=== PATIENT | female | born 1950 | race Caucasian/White ===

== ENCOUNTER 2016-11-07 16:56 | Emergency (ER) | payer BC, MEDICARE ==
[~2016-11-07] VITALS: Ht 167.6 cm; Wt 63.6 kg
[~2016-11-07 16:56] MED LIST: FLEXERIL5 MG PO; MEDROL 4MG DOSPA4 MG PO; ULTRAM 50MG TAB50 MG PO
[2016-11-07 17:08] VITALS: TEMP 97.5
[2016-11-07 17:35] LABS: BASO # 0.1 (0.0-0.2); BASO % 0.6 % (0.0-2.0); EOS # 0.1 (0.0-0.7); EOS % 1.5 % (0-4.0); GRAN # 3.8 (1.4-6.5); GRAN % 48.4 % (42.2-75.2); HEMATOCRIT 39.2 % (37.0-47.0); LYMPH # 3.4 (1.2-3.4); LYMPH % 42.6 % (20.0-51.0); MEAN CELL VOLUME 88 fl (80.0-100.0); MEAN CORPUSCULAR HEMOGLOBIN 29 pg (27.0-31.0); MEAN CORPUSCULAR HGB CONC 33 g/dl (33.0-37.0); MEAN PLATELET VOLUME 10.3 fl (7.4-10.4); MONO # 0.5 (0.1-0.6); MONO % 6.6 % (1.7-9.3); PLATELET COUNT 313 K/mm3 (130-400); RED BLOOD COUNT 4.47 M/mm3 (4.10-5.30); REDCELL DISTRIBUTION WIDTH-CV 13.7 % (11.5-14.5); WHITE BLOOD COUNT 7.9 K/mm3 (4.8-10.8)
[2016-11-07 17:45] LABS: ADJUSTED CALCIUM 9.5 mg/dL (8.4-10.2); ALANINE AMINOTRANSFERASE 28 U/L (9-52); ALBUMIN 4.3 gm/dL (3.5-5.0); ALKALINE PHOSPHATASE 62 U/L (50-136); ANION GAP 12 mmol/L (7-16); BILIRUBIN,TOTAL 0.9 mg/dL (0.0-1.0); BLOOD UREA NITROGEN 16 mg/dL (7-17); CALCIUM 9.7 mg/dL (8.4-10.2); CARBON DIOXIDE 26 mmol/L (22-30); CHLORIDE 99 mmol/L (98-107); CREATININE, serum 0.89 mg/dL (0.52-1.25); GLUCOSE 97 mg/dL (74-106); LIPASE 113 U/L (23-300); POTASSIUM 3.6 mmol/L (3.4-5.0); SODIUM 136 mmol/L (137-145); TOTAL PROTEIN 7.1 gm/dL (6.4-8.2)
[2016-11-07 17:58] LABS: TROPONIN-I < 0.012 ng/mL (0.000-0.034)
[2016-11-07 18:35] VITALS: BP 139/73; PULSE 77
== END 2016-11-07 19:04 | disposition home or self-care (01) ==
LOC: COL.ER 16:56
PROVIDERS: Emergency Medicine
DX: R55 Syncope and collapse (principal)
CPT/HCPCS: J7030

== ENCOUNTER → 2016-12-03 | Outpatient (CLI) | payer BC, MEDICARE | LOC: COL.RAD 08:52 | DX: M18.11 Unilateral primary osteoarthritis of first carpometacarpal joint, right hand (principal) ==

== ENCOUNTER → 2017-04-14 | Outpatient (CLI) | payer BC, MEDICARE | LOC: MC.RAD 08:40 | DX: Z12.31 Encounter for screening mammogram for malignant neoplasm of breast (principal) ==

== ENCOUNTER 2018-04-17 11:00 | Outpatient (RCR) | payer MEDICARE, BC ==
[2018-01-19 11:50] VITALS: BP 131/78; PULSE 82; TEMP 97.8
[2018-01-20 07:55] VITALS: BP 127/68; PULSE 83; TEMP 98.1
[2018-01-20 09:10] VITALS: BP 121/85; PULSE 74; TEMP 98.1
[2018-01-21 11:45] VITALS: BP 139/71; PULSE 79; TEMP 98.1
[2018-01-22 11:15] VITALS: BP 130/83; PULSE 79; TEMP 98.1
[2018-01-23 11:22] VITALS: BP 138/88; PULSE 83; TEMP 97.9
[2018-01-26 11:03] VITALS: BP 139/76; PULSE 76; TEMP 98
[2018-01-27 11:16] VITALS: BP 145/79; PULSE 87; TEMP 98.3
[2018-01-28 11:23] VITALS: BP 140/66; PULSE 79; TEMP 98.4
[2018-01-29 11:22] VITALS: BP 151/70; PULSE 80; TEMP 97.9
[2018-01-30 11:19] VITALS: BP 148/71; PULSE 76; TEMP 98.2
[2018-02-16 11:07] VITALS: BP 152/74; PULSE 83; TEMP 98.3
[2018-02-17 10:57] VITALS: BP 132/74; PULSE 85; TEMP 98.1
[2018-02-18 10:46] VITALS: BP 142/80; PULSE 75; TEMP 98
[2018-02-19 11:02] VITALS: BP 130/775; PULSE 82; TEMP 97.2
[2018-02-20 11:16] VITALS: BP 141/71; PULSE 75; TEMP 97.5
[2018-02-23 10:47] VITALS: BP 133/73; PULSE 86; TEMP 97.4
[2018-02-24 11:08] VITALS: BP 136/74; PULSE 73; TEMP 98.3
[2018-02-25 10:45] VITALS: BP 134/72; PULSE 92; TEMP 98
[2018-02-26 11:05] VITALS: BP 117/70; PULSE 88; TEMP 98
[2018-02-27 11:05] VITALS: BP 119/77; PULSE 75; TEMP 98.6
[2018-03-16 15:13] VITALS: BP 132/67; PULSE 78; TEMP 98.3
[2018-03-17 11:40] VITALS: BP 123/63; PULSE 77; TEMP 97.9
[2018-03-18 08:15] VITALS: BP 122/68; PULSE 73; TEMP 97.9
[2018-03-19 11:02] VITALS: BP 124/81; PULSE 85; TEMP 98.2
[2018-03-20 11:54] VITALS: BP 128/69; PULSE 77; TEMP 98.2
[2018-03-21 08:42] VITALS: BP 11/66; PULSE 78; TEMP 98
[2018-03-23 11:07] VITALS: BP 109/62; PULSE 84; TEMP 97.9
[2018-03-24 11:00] VITALS: BP 132/70; PULSE 73; TEMP 98
[2018-03-25 10:55] VITALS: BP 120/70; PULSE 77; TEMP 97.9
[2018-03-26 09:30] VITALS: BP 151/73; PULSE 92; TEMP 97.9
[2018-04-13 11:09] VITALS: BP 130/89; PULSE 75; TEMP 98
[2018-04-14 10:56] VITALS: BP 127/67; PULSE 71; TEMP 97.8
[2018-04-15 10:52] VITALS: BP 124/61; PULSE 85; TEMP 97.8
[2018-04-16 11:17] VITALS: BP 123/73; PULSE 82; TEMP 97.3
[~2018-04-17] VITALS: Ht 167.6 cm; Wt 64.3 kg
[~2018-04-17 11:00] MED LIST changes: +MOBIC15 MG PO; +RADICAVA IV; +RILUTEK 50MG TA50 MG PO
[2018-04-17 11:25] VITALS: BP 110/63; PULSE 78; TEMP 98.4
== END 2018-04-19 08:43 | disposition home or self-care (01) ==
LOC: EUO 11:00
DX: G12.21 Amyotrophic lateral sclerosis (principal); Z45.2 Encounter for adjustment and management of vascular access device; Z95.828 Presence of other vascular implants and grafts
CPT/HCPCS: C9493; J1644

== ENCOUNTER → 2018-04-28 | Outpatient (CLI) | payer MEDICARE, BC | LOC: MC.RAD 13:10 | DX: Z12.31 Encounter for screening mammogram for malignant neoplasm of breast (principal) ==

== ENCOUNTER 2018-07-17 14:45 | Outpatient (RCR) | payer MEDICARE, BC ==
[2018-04-20 11:29] VITALS: BP 113/67; PULSE 72; TEMP 98.1
[2018-04-21 12:15] VITALS: BP 109/71; PULSE 64; TEMP 98.2
[2018-04-22 11:07] VITALS: BP 122/64; PULSE 78; TEMP 97.8
[2018-04-23 11:07] VITALS: BP 139/73; PULSE 76; TEMP 98
[2018-04-24 11:23] VITALS: BP 119/67; PULSE 74; TEMP 98.6
[2018-05-11 11:57] VITALS: BP 112/68; PULSE 81; TEMP 98.1
[2018-05-12 10:53] VITALS: BP 124/74; PULSE 89; TEMP 97.6
[2018-05-13 11:05] VITALS: BP 126/74; PULSE 74; TEMP 97.8
[2018-05-14 11:05] VITALS: BP 121/76; PULSE 76; TEMP 98.3
[2018-05-15 11:56] VITALS: BP 118/76; PULSE 83; TEMP 98.1
[2018-05-16 08:52] VITALS: BP 98/58; PULSE 73; TEMP 97.6
[2018-05-19 11:58] VITALS: BP 116/72; PULSE 66; TEMP 97.9
[2018-05-20 11:33] VITALS: BP 132/80; PULSE 94; TEMP 98.2
[2018-05-22 14:14] VITALS: BP 122/65; PULSE 78; TEMP 99.2
[2018-06-08 11:06] VITALS: BP 120/65; PULSE 79; TEMP 98.2
[2018-06-09 11:14] VITALS: BP 119/65; PULSE 82; TEMP 97.9
[2018-06-10 11:08] VITALS: BP 128/75; PULSE 77; TEMP 97.8
[2018-06-11 09:30] VITALS: BP 134/74; PULSE 88; TEMP 97.7
[2018-06-12 11:45] VITALS: BP 141/72; PULSE 79; TEMP 97.2
[2018-06-15 11:00] VITALS: BP 113/67; PULSE 75; TEMP 98.2
[2018-06-16 11:18] VITALS: BP 120/81; PULSE 79; TEMP 98.8
[2018-06-17 11:39] VITALS: BP 116/67; PULSE 75; TEMP 98
[2018-06-18 11:40] VITALS: BP 109/57; PULSE 80; TEMP 98.1
[2018-06-19 11:44] VITALS: BP 126/70; PULSE 81; TEMP 98.2
[2018-06-19 11:49] VITALS: BP 126/70; PULSE 81; TEMP 98.2
[2018-07-06 11:03] VITALS: BP 127/72; PULSE 100; TEMP 98.1
[2018-07-07 11:02] VITALS: BP 130/77; PULSE 73; TEMP 98.2
[2018-07-08 11:08] VITALS: BP 123/66; PULSE 70; TEMP 98.9
[2018-07-09 11:09] VITALS: BP 114/63; PULSE 84; TEMP 97.6
[2018-07-10 11:04] VITALS: BP 147/66; PULSE 72; TEMP 98.5
[2018-07-13 14:54] VITALS: BP 126/74; PULSE 81; TEMP 99
[2018-07-14 15:02] VITALS: BP 109/62; PULSE 77; TEMP 98.1
[2018-07-15 16:02] VITALS: BP 115/55; PULSE 77; TEMP 97.6
[2018-07-16 14:58] VITALS: BP 110/69; PULSE 89; TEMP 98
[~2018-07-17] VITALS: Ht 167.6 cm; Wt 66.7 kg
[2018-07-17 14:51] VITALS: BP 119/66; PULSE 75; TEMP 98.2
== END 2018-07-19 | disposition home or self-care (01) ==
LOC: EUO
DX: G12.21 Amyotrophic lateral sclerosis (principal); Z45.2 Encounter for adjustment and management of vascular access device; Z95.828 Presence of other vascular implants and grafts
CPT/HCPCS: C9493; J1644

== ENCOUNTER 2018-09-11 14:45 | Outpatient (RCR) | payer MEDICARE, BC ==
[2018-08-02 08:00] VITALS: BP 102/76; PULSE 52; TEMP 98.4
[2018-08-04 15:08] VITALS: BP 104/52; PULSE 77; TEMP 98.5
[2018-08-05 09:19] VITALS: BP 119/67; PULSE 66; TEMP 97.8
[2018-08-07 14:44] VITALS: BP 129/71; PULSE 94; TEMP 97.9
[2018-08-10 15:10] VITALS: BP 113/60; PULSE 75; TEMP 98.3
[2018-08-11 15:01] VITALS: BP 108/61; PULSE 78; TEMP 98.3
[2018-08-12 14:55] VITALS: BP 112/59; PULSE 82; TEMP 98.2
[2018-08-13 14:45] VITALS: BP 112/57; PULSE 88; TEMP 98.2
[2018-08-14 15:59] VITALS: BP 119/60; PULSE 80; TEMP 98.1
[2018-08-31 15:00] VITALS: BP 131/73; PULSE 78; TEMP 98.9
[2018-09-01 14:47] VITALS: BP 146/77; PULSE 85; TEMP 98.5
[2018-09-02 14:50] VITALS: BP 129/71; PULSE 77; TEMP 98
[2018-09-03 15:00] VITALS: BP 132/73; PULSE 79; TEMP 98.3
[2018-09-04 14:49] VITALS: BP 154/84; PULSE 98; TEMP 98.1
[2018-09-06 08:50] VITALS: BP 115/72; PULSE 82; TEMP 98.3
[2018-09-07 11:59] VITALS: BP 152/67; PULSE 83; TEMP 98.3
[2018-09-07 13:13] VITALS: BP 137/85; PULSE 77
[2018-09-09 14:54] VITALS: BP 127/66; PULSE 82; TEMP 98.2
[2018-09-10 14:51] VITALS: BP 135/75; PULSE 75; TEMP 98.2
[~2018-09-11] VITALS: Ht 167.6 cm; Wt 65.0 kg
[2018-09-11 12:09] VITALS: BP 127/75; PULSE 80; TEMP 98.1
[~2018-09-11 14:45] MED LIST changes: +NAMENDA5 MG PO
== END 2018-09-11 15:14 | disposition home or self-care (01) ==
LOC: EUO 14:45
DX: G12.21 Amyotrophic lateral sclerosis (principal)
CPT/HCPCS: C9493; J1644

== ENCOUNTER 2018-10-26 13:30 | Outpatient (RCR) | payer MEDICARE, BC | END 2018-10-27 | disposition home or self-care (01) | LOC: WSPT | DX: G12.21 Amyotrophic lateral sclerosis (principal) | CPT/HCPCS: G8978-GP; G8979-GP ==

== ENCOUNTER 2018-11-02 13:30 | Outpatient (RCR) | payer MEDICARE, BC | END 2019-01-27 | disposition home or self-care (01) | LOC: WSPT | DX: G12.21 Amyotrophic lateral sclerosis (principal) ==

== ENCOUNTER 2018-12-04 07:30 | Outpatient (RCR) | payer MEDICARE, BC ==
[2018-09-27 08:38] VITALS: BP 120/76; PULSE 73; TEMP 98.1
[2018-09-28 14:55] VITALS: BP 113/71; PULSE 87; TEMP 98.2
[2018-09-29 09:12] VITALS: BP 116/60; PULSE 75; TEMP 98.4
[2018-09-30 14:45] VITALS: BP 100/61; PULSE 69; TEMP 97.9
[2018-10-01 15:00] VITALS: BP 118/72; PULSE 73; TEMP 98
[2018-10-02 10:13] VITALS: BP 111/75; PULSE 80; TEMP 97.5
[2018-10-07 11:45] VITALS: BP 130/78; PULSE 71; TEMP 97.9
[2018-10-08 15:04] VITALS: BP 115/62; PULSE 84; TEMP 98.8
[2018-10-08 15:32] VITALS: BP 106/59; PULSE 71; TEMP 98.3
[2018-10-09 10:15] VITALS: BP 134/59; PULSE 66; TEMP 97
[2018-10-10 07:35] VITALS: BP 128/68; PULSE 74; TEMP 98.2
[2018-10-26 15:10] VITALS: BP 122/86; PULSE 79; TEMP 98.2
[2018-10-27 11:40] VITALS: BP 116/65; PULSE 70; TEMP 97.8
[2018-10-28 15:00] VITALS: BP 111/61; PULSE 78; TEMP 98
[2018-10-29 09:50] VITALS: BP 133/64; PULSE 81; TEMP 98
[2018-10-30 14:48] VITALS: BP 105/64; PULSE 87; TEMP 98.1
[2018-11-02 14:50] VITALS: BP 118/65; PULSE 89; TEMP 98.1
[2018-11-03 14:55] VITALS: BP 122/63; PULSE 89; TEMP 98
[2018-11-04 10:55] VITALS: BP 117/68; PULSE 82; TEMP 97.8
[2018-11-05 15:11] VITALS: BP 105/56; PULSE 87; TEMP 97.2
[2018-11-06 07:55] VITALS: BP 110/57; PULSE 81; TEMP 97.4
[2018-11-23 16:25] VITALS: BP 138/68; PULSE 80; TEMP 98.1
[2018-11-24 14:51] VITALS: BP 120/67; PULSE 77; TEMP 98.5
[2018-11-25 09:44] VITALS: BP 121/75; PULSE 80; TEMP 98.2
[2018-11-26 09:29] VITALS: BP 116/74; PULSE 76
[2018-11-27 08:45] VITALS: BP 137/77; PULSE 92; TEMP 97.3
[2018-11-30 14:45] VITALS: BP 97/50; PULSE 78; TEMP 98.4
[2018-12-01 14:56] VITALS: BP 114/65; PULSE 96; TEMP 98.4
[2018-12-03 14:40] VITALS: BP 107/81; PULSE 81; TEMP 98.4
[~2018-12-04] VITALS: Ht 167.6 cm; Wt 64.0 kg
[2018-12-04 09:42] VITALS: BP 134/71; PULSE 86; TEMP 97.8
== END 2018-12-04 08:40 | disposition home or self-care (01) ==
LOC: EUO 07:30
DX: G12.21 Amyotrophic lateral sclerosis (principal); Z45.2 Encounter for adjustment and management of vascular access device; Z95.828 Presence of other vascular implants and grafts
CPT/HCPCS: J1301; J1644

== ENCOUNTER 2019-03-20 07:30 | Outpatient (RCR) | payer MEDICARE, BC ==
[2018-12-21 14:57] VITALS: BP 124/68; PULSE 78; TEMP 98
[2018-12-22 13:17] VITALS: BP 127/66; PULSE 72; TEMP 98
[2018-12-23 14:40] VITALS: BP 127/67; PULSE 88; TEMP 97.8
[2018-12-24 11:02] VITALS: BP 110/66; PULSE 83; TEMP 97.9
[2018-12-25 07:44] VITALS: BP 122/73; PULSE 70; TEMP 97.6
[2018-12-28 14:45] VITALS: BP 114/62; PULSE 79; TEMP 98.3
[2018-12-29 15:00] VITALS: BP 102/62; PULSE 86; TEMP 97.5
[2018-12-30 14:56] VITALS: BP 114/68; PULSE 82; TEMP 98.6
[2018-12-31 15:24] VITALS: BP 107/69; PULSE 86; TEMP 98.1
[2019-01-01 08:19] VITALS: BP 123/68; PULSE 81; TEMP 97.4
[2019-01-18 14:53] VITALS: BP 113/79; PULSE 83; TEMP 97.6
[2019-01-19 10:53] VITALS: BP 121/65; PULSE 83; TEMP 97.9
[2019-01-20 11:27] VITALS: BP 93/55; PULSE 82; TEMP 97.9
[2019-01-21 14:57] VITALS: BP 131/65; PULSE 101; TEMP 97.8
[2019-01-22 14:53] VITALS: BP 123/69; PULSE 91; TEMP 98
[2019-01-25 14:45] VITALS: BP 106/61; PULSE 71; TEMP 98
[2019-01-26 15:02] VITALS: BP 107/53; PULSE 81; TEMP 98.6
[2019-01-27 15:00] VITALS: BP 115/65; PULSE 70; TEMP 98.4
[2019-01-28 15:37] VITALS: BP 95/57; PULSE 70; TEMP 98.1
[2019-01-29 10:58] VITALS: BP 109/66; PULSE 77; TEMP 97.9
[2019-02-15 15:08] VITALS: BP 106/67; PULSE 79; TEMP 98.4
[2019-02-16 15:13] VITALS: BP 111/65; PULSE 77; TEMP 98.1
[2019-02-17 14:45] VITALS: BP 99/58; PULSE 86; TEMP 98.4
[2019-02-18 14:52] VITALS: BP 92/58; PULSE 71; TEMP 98
[2019-02-19 08:00] VITALS: BP 108/66; PULSE 71; TEMP 98
[2019-02-22 13:25] VITALS: BP 114/61; PULSE 61; TEMP 98
[2019-02-23 13:38] VITALS: BP 102/61; PULSE 89; TEMP 97.8
[2019-02-24 11:32] VITALS: BP 105/66; PULSE 68; TEMP 98.1
[2019-02-25 09:17] VITALS: BP 105/60; PULSE 73; TEMP 97.6
[2019-02-26 15:41] VITALS: BP 105/60; PULSE 77; TEMP 97.5
[2019-03-15 13:07] VITALS: BP 100/55; PULSE 87; TEMP 99.1
[2019-03-16 14:48] VITALS: BP 103/56; PULSE 72; TEMP 98.1
[2019-03-17 11:09] VITALS: BP 113/74; PULSE 74; TEMP 97.3
[2019-03-19 10:03] VITALS: BP 115/66; PULSE 76; TEMP 98
[~2019-03-20] VITALS: Ht 167.6 cm; Wt 65.1 kg
[2019-03-20 07:38] VITALS: BP 121/69; PULSE 81; TEMP 98.1
== END 2019-03-21 | disposition home or self-care (01) ==
LOC: EUO
DX: G12.21 Amyotrophic lateral sclerosis (principal); Z79.899 Other long term (current) drug therapy
CPT/HCPCS: J1301; J1644

== ENCOUNTER 2019-06-18 14:45 | Outpatient (RCR) | payer MEDICARE, BC ==
[2019-03-22 10:15] VITALS: BP 109/56; PULSE 69; TEMP 98.1
[2019-03-23 10:47] VITALS: BP 111/68; PULSE 73; TEMP 98.3
[2019-03-24 09:13] VITALS: BP 115/68; PULSE 85; TEMP 98.3
[2019-03-25 15:00] VITALS: BP 104/68; PULSE 76; TEMP 98.1
[2019-03-26 09:13] VITALS: BP 105/59; PULSE 85; TEMP 98
[2019-04-12 15:29] VITALS: BP 109/60; PULSE 72; TEMP 98.8
[2019-04-13 13:07] VITALS: BP 116/63; PULSE 70; TEMP 98.2
[2019-04-14 10:16] VITALS: BP 166/88; PULSE 85; TEMP 97.9
[2019-04-15 07:45] VITALS: BP 145/75; PULSE 92; TEMP 98.3
[2019-04-16 10:55] VITALS: BP 132/69; PULSE 83; TEMP 97.9
--- NOTE | 2019-04-16 12:11 | NUR ---
PT SENT HOME AT THIS TIME. PAC DISCONTINUED BY JANA ESPINOSA IN EXPRESS UNIT.
[2019-04-19 15:50] VITALS: BP 121/67; PULSE 85; TEMP 98.5
[2019-04-20 15:27] VITALS: BP 117/68; PULSE 87; TEMP 98.1
[2019-04-21 15:29] VITALS: BP 137/69; PULSE 68; TEMP 98
[2019-04-22 14:58] VITALS: BP 144/72; PULSE 86; TEMP 97.7
[2019-04-23 11:30] VITALS: BP 118/76; PULSE 73; TEMP 98.6
[2019-05-10 14:58] VITALS: BP 11/69; PULSE 72; TEMP 98.3
[2019-05-11 15:21] VITALS: BP 123/66; PULSE 83; TEMP 98.5
[2019-05-12 12:23] VITALS: BP 124/79; PULSE 84; TEMP 97.6
[2019-05-13 14:45] VITALS: BP 111/63; PULSE 70; TEMP 98.1
[2019-05-14 14:50] VITALS: BP 110/56; PULSE 94; TEMP 98.4
[2019-05-15 08:09] VITALS: BP 117/74; PULSE 81; TEMP 98
[2019-05-18 14:50] VITALS: BP 112/64; PULSE 83; TEMP 98
[2019-05-19 14:54] VITALS: BP 110/75; PULSE 77; TEMP 98.8
[2019-05-20 14:56] VITALS: BP 122/78; PULSE 75; TEMP 98.1
[2019-05-21 14:58] VITALS: BP 132/68; PULSE 96; TEMP 98.8
[2019-06-07 14:54] VITALS: BP 112/73; PULSE 77; TEMP 98.1
[2019-06-08 14:20] VITALS: BP 118/60; PULSE 81; TEMP 98.4
--- NOTE | 2019-06-08 15:30 | NUR ---
Pt lesli Radicava well. PAC flushed with NS and heparin per protocal and left accessed for infusion tomorrow.
[2019-06-09 14:43] VITALS: BP 115/74; PULSE 80; TEMP 98.1
[2019-06-10 11:11] VITALS: BP 111/67; PULSE 81; TEMP 98
[2019-06-11 14:40] VITALS: BP 118/66; PULSE 86; TEMP 98.2
[2019-06-14 13:18] VITALS: BP 115/71; PULSE 81; TEMP 98.2
[2019-06-15 11:56] VITALS: BP 113/67; PULSE 61; TEMP 97.9
[2019-06-16 15:03] VITALS: BP 115/67; PULSE 74; TEMP 97.9
[2019-06-17 15:21] VITALS: BP 103/55; PULSE 79; TEMP 98.2
[~2019-06-18] VITALS: Ht 167.6 cm; Wt 63.3 kg
[~2019-06-18 14:45] MED LIST changes: +CALCIUM CARBON650 M2 PO; +MASON NATURAL2000 IU PO
[2019-06-18 15:47] VITALS: BP 98/57; PULSE 78; TEMP 98.1
[2019-06-18 16:10] VITALS: BP 107/63
== END 2019-06-20 | disposition home or self-care (01) ==
LOC: EUO
DX: Z45.2 Encounter for adjustment and management of vascular access device (principal); G12.21 Amyotrophic lateral sclerosis
CPT/HCPCS: J1301; J1644

== ENCOUNTER 2019-09-10 10:00 | Outpatient (RCR) | payer MEDICARE, BC ==
[2019-07-05 14:50] VITALS: BP 124/63; PULSE 80; TEMP 98.5
[2019-07-06 12:12] VITALS: BP 115/62; PULSE 75; TEMP 98.7
[2019-07-07 10:29] VITALS: BP 132/82; PULSE 96; TEMP 98.2
[2019-07-08 11:11] VITALS: BP 122/78; PULSE 76; TEMP 98.2
[2019-07-09 14:55] VITALS: BP 124/69; PULSE 79; TEMP 98.5
[2019-07-12 10:00] VITALS: BP 115/67; PULSE 71; TEMP 98.5
[2019-07-13 15:48] VITALS: BP 99/65; PULSE 74; TEMP 98.4
[2019-07-14 10:10] VITALS: BP 114/52; PULSE 80; TEMP 97.9
[2019-07-15 10:03] VITALS: BP 114/60; PULSE 81; TEMP 98
[2019-07-16 11:36] VITALS: BP 115/70; PULSE 79; TEMP 97.9
[2019-08-02 08:34] VITALS: BP 118/77; PULSE 74; TEMP 98.4
[2019-08-03 15:05] VITALS: BP 97/63; PULSE 90; TEMP 97.9
[2019-08-04 15:06] VITALS: BP 122/79; PULSE 87; TEMP 98.2
[2019-08-05 10:02] VITALS: BP 112/69; PULSE 80; TEMP 98.1
[2019-08-06 11:46] VITALS: BP 105/68; PULSE 83; TEMP 98.2
[2019-08-09 10:48] VITALS: BP 130/63; PULSE 84; TEMP 97.9
--- NOTE | 2019-08-09 11:55 | NUR ---
Pt lesli Radicava well. Pt discharged per ambulation with wheeled walker. PAC left accessed for infusion tomorrow.
[2019-08-10 11:37] VITALS: BP 117/67; PULSE 85; TEMP 97.8
[2019-08-11 09:16] VITALS: BP 129/69; PULSE 95; TEMP 97.8
[2019-08-13 13:07] VITALS: BP 117/61; PULSE 73; TEMP 97.5
[2019-08-14 07:54] VITALS: BP 135/73; PULSE 87; TEMP 98
[2019-08-30 15:00] VITALS: BP 139/72; PULSE 102; TEMP 98.5
[2019-08-31 15:14] VITALS: BP 127/82; PULSE 86; TEMP 98.5
[2019-09-01 09:18] VITALS: BP 124/77; PULSE 74; TEMP 97.2
[2019-09-02 08:00] VITALS: BP 124/68; PULSE 80; TEMP 97.9
[2019-09-03 15:39] VITALS: BP 119/69; PULSE 65; TEMP 977
[2019-09-04 08:00] VITALS: BP 114/68; PULSE 70; TEMP 98.3
[2019-09-06 14:30] VITALS: BP 97/60; PULSE 76; TEMP 98.3
[2019-09-07 10:21] VITALS: BP 121/87; PULSE 119; TEMP 97.8
[2019-09-09 10:00] VITALS: BP 108/65; PULSE 82; TEMP 98.2
[~2019-09-10] VITALS: Ht 167.6 cm; Wt 64.8 kg
[2019-09-10 10:01] VITALS: BP 118/66; PULSE 84; TEMP 98.3
== END 2019-09-27 14:37 | disposition still patient (30) ==
LOC: EUO 10:00
DX: G12.21 Amyotrophic lateral sclerosis (principal)
CPT/HCPCS: J1301; J1644

== ENCOUNTER 2020-04-14 14:45 | Outpatient (RCR) | payer MEDICARE, BC ==
[2020-01-17 15:51] VITALS: BP 138/80; PULSE 101; TEMP 98.4
[2020-01-18 14:52] VITALS: BP 146/69; PULSE 94; TEMP 98.1
[2020-01-19 15:20] VITALS: BP 136/72; PULSE 87; TEMP 97.8
[2020-01-20 12:09] VITALS: BP 138/88; PULSE 92; TEMP 98.1
[2020-01-21 16:30] VITALS: BP 129/74; PULSE 88; TEMP 97.4
[2020-01-24 15:34] VITALS: BP 125/82; PULSE 110; TEMP 98.8
[2020-01-25 09:47] VITALS: BP 133/83; PULSE 88; TEMP 98.3
[2020-01-26 10:08] VITALS: BP 141/84; PULSE 95; TEMP 98.3
[2020-01-27 09:28] VITALS: BP 149/74; PULSE 99; TEMP 98.2
[2020-01-28 09:49] VITALS: BP 114/74; PULSE 66; TEMP 98.4
[2020-02-14 15:15] VITALS: BP 132/86; PULSE 101; TEMP 97.4
[2020-02-15 13:21] VITALS: BP 122/85; PULSE 90; TEMP 98.4
[2020-02-16 13:05] VITALS: BP 127/85; PULSE 97; TEMP 98.7
[2020-02-17 08:00] VITALS: BP 126/73; PULSE 99; TEMP 98
[2020-02-18 16:23] VITALS: BP 117/71; PULSE 129; TEMP 98.4
[2020-02-21 13:30] VITALS: BP 129/77; PULSE 99; TEMP 98.1
[2020-02-22 16:09] VITALS: BP 123/74; PULSE 92; TEMP 97.3
[2020-02-23 15:48] VITALS: BP 123/78; PULSE 93; TEMP 98.2
[2020-02-24 15:01] VITALS: BP 124/71; PULSE 96; TEMP 97.5
[2020-02-25 15:25] VITALS: BP 115/81; PULSE 86; TEMP 97.5
[2020-03-13 15:35] VITALS: BP 134/72; PULSE 77; TEMP 98.8
[2020-03-14 14:58] VITALS: BP 123/82; PULSE 97; TEMP 97.8
[2020-03-15 15:16] VITALS: BP 118/77; PULSE 88; TEMP 98.3
[2020-03-16 15:01] VITALS: BP 149/88; PULSE 90; TEMP 98.4
[2020-03-17 10:06] VITALS: BP 147/74; PULSE 100; TEMP 98.4
[2020-03-20 15:11] VITALS: BP 128/72; PULSE 96; TEMP 98.3
[2020-03-21 15:00] VITALS: BP 130/69; PULSE 95; TEMP 97.9
[2020-03-22 15:14] VITALS: BP 126/72; PULSE 94; TEMP 98.1
[2020-03-23 11:00] VITALS: BP 132/84; PULSE 94; TEMP 98.1
[2020-03-24 14:50] VITALS: BP 131/71; PULSE 87; TEMP 98.8
[2020-04-10 14:51] VITALS: BP 141/85; PULSE 94; TEMP 98.4
[2020-04-11 14:57] VITALS: BP 123/83; PULSE 104; TEMP 98.4
[2020-04-12 15:28] VITALS: BP 119/70; PULSE 101; TEMP 97.2
[2020-04-13 14:50] VITALS: BP 141/76; PULSE 90; TEMP 98
[~2020-04-14] VITALS: Ht 167.6 cm; Wt 59.0 kg
[2020-04-14 14:52] VITALS: BP 133/86; PULSE 81; TEMP 98
== END 2020-04-16 | disposition still patient (30) ==
LOC: EUO
DX: G12.21 Amyotrophic lateral sclerosis (principal)
CPT/HCPCS: J1301; J1644

== ENCOUNTER 2020-06-14 14:45 | Outpatient (RCR) | payer MEDICARE, BC ==
[2020-04-17 15:47] VITALS: BP 127/66; PULSE 87; TEMP 97.2
[2020-04-18 11:34] VITALS: BP 125/72; PULSE 95; TEMP 98.8
[2020-04-19 15:25] VITALS: BP 122/77; PULSE 82; TEMP 97.8
[2020-04-20 15:25] VITALS: BP 121/66; PULSE 92; TEMP 97.9
[2020-04-21 14:56] VITALS: BP 119/75; PULSE 95; TEMP 99.1
[2020-05-08 14:43] VITALS: BP 164/87; PULSE 102; TEMP 98.7
[2020-05-09 14:56] VITALS: BP 133/89; PULSE 93; TEMP 98.7
[2020-05-10 14:52] VITALS: BP 140/71; PULSE 87; TEMP 97.2
[2020-05-11 09:42] VITALS: BP 129/75; PULSE 90; TEMP 97.6
[2020-05-12 14:44] VITALS: BP 132/82; PULSE 98; TEMP 98.2
[2020-05-15 14:55] VITALS: BP 156/87; PULSE 107; TEMP 98.1
[2020-05-16 13:31] VITALS: BP 123/82; PULSE 96; TEMP 97.7
[2020-05-17 15:11] VITALS: BP 123/78; PULSE 91; TEMP 97.4
[2020-05-18 15:03] VITALS: BP 126/66; PULSE 94; TEMP 97.9
[2020-05-19 15:37] VITALS: BP 124/72; PULSE 96; TEMP 98.1
[2020-06-05 15:25] VITALS: BP 135/67; PULSE 96; TEMP 97.7
[2020-06-06 15:00] VITALS: BP 119/68; PULSE 92; TEMP 97.4
[2020-06-07 15:32] VITALS: BP 123/74; PULSE 91; TEMP 97.8
[2020-06-08 15:14] VITALS: BP 119/72; PULSE 106; TEMP 98.1
[2020-06-09 09:25] VITALS: BP 123/80; PULSE 91; TEMP 97.8
[2020-06-12 15:29] VITALS: BP 122/78; PULSE 88; TEMP 98.3
[2020-06-13 14:47] VITALS: BP 115/76; PULSE 101; TEMP 98.9
[2020-06-13 15:03] VITALS: BP 115/76; PULSE 99; TEMP 98.8
[~2020-06-14] VITALS: Ht 167.6 cm; Wt 55.5 kg
[2020-06-14 16:09] VITALS: BP 132/87; PULSE 93; TEMP 98.3
== END 2020-06-15 07:11 | disposition home or self-care (01) ==
LOC: EUO 14:45
DX: G12.21 Amyotrophic lateral sclerosis (principal); Z79.899 Other long term (current) drug therapy
CPT/HCPCS: J1301; J1644

== ENCOUNTER 2020-08-18 14:45 | Outpatient (RCR) | payer MEDICARE, BC ==
[2020-06-15 10:35] VITALS: BP 133/72; PULSE 87; TEMP 98.3
[2020-06-16 09:04] VITALS: BP 140/82; PULSE 96; TEMP 97.9
[2020-07-03 15:19] VITALS: BP 116/76; PULSE 95; TEMP 98.4
[2020-07-04 14:46] VITALS: BP 148/81; PULSE 100; TEMP 97.9
[2020-07-05 15:06] VITALS: BP 121/82; PULSE 110; TEMP 98.7
[2020-07-06 14:51] VITALS: BP 125/74; PULSE 110; TEMP 98.1
[2020-07-07 15:15] VITALS: BP 135/76; PULSE 96; TEMP 98.5
[2020-07-10 15:30] VITALS: BP 138/62; PULSE 62; TEMP 97.4
[2020-07-11 15:30] VITALS: BP 124/71; PULSE 97; TEMP 98.3
[2020-07-12 16:24] VITALS: BP 144/99; PULSE 97; TEMP 98.3
[2020-07-13 14:50] VITALS: BP 156/86; PULSE 98; TEMP 98.2
[2020-07-14 14:58] VITALS: BP 135/89; PULSE 94; TEMP 97.9
[2020-08-07 15:46] VITALS: BP 125/81; PULSE 113; TEMP 98.6
[2020-08-08 15:11] VITALS: BP 126/78; PULSE 116; TEMP 98.7
[2020-08-10 09:36] VITALS: BP 130/83; PULSE 86; TEMP 97.8
[2020-08-11 16:03] VITALS: BP 122/84; PULSE 105; TEMP 98.1
[2020-08-14 15:13] VITALS: BP 134/78; PULSE 119; TEMP 98.2
[2020-08-15 16:04] VITALS: BP 126/82; PULSE 109; TEMP 97.3
[2020-08-16 16:03] VITALS: BP 135/83; PULSE 101; TEMP 98.2
[2020-08-17 15:38] VITALS: BP 123/80; PULSE 94; TEMP 97.9
[~2020-08-18] VITALS: Ht 167.6 cm; Wt 55.5 kg
[~2020-08-18 14:45] MED LIST changes: +NUEDEXTA 20 MG-1 CAP PO
[2020-08-18 16:00] VITALS: BP 124/78; PULSE 100; TEMP 98.1
== END 2020-09-12 15:35 | disposition home or self-care (01) ==
LOC: EUO 14:45
DX: G12.21 Amyotrophic lateral sclerosis (principal)
CPT/HCPCS: J1301; J1644

== ENCOUNTER 2020-10-22 08:00 | Outpatient (RCR) | payer MEDICARE, BC ==
[2020-09-18 15:57] VITALS: BP 124/88; PULSE 110; TEMP 98.6
[2020-09-19 15:10] VITALS: BP 127/78; PULSE 109; TEMP 98.1
[2020-09-20 15:15] VITALS: BP 140/69; PULSE 115; TEMP 98.6
[2020-09-21 10:39] VITALS: BP 143/90; PULSE 99; TEMP 98.4
[2020-09-22 11:48] VITALS: BP 148/88; PULSE 107; TEMP 99.1
[2020-09-25 11:35] VITALS: BP 129/79; PULSE 118; TEMP 98.3
[2020-09-26 11:31] VITALS: BP 145/92; PULSE 113; TEMP 98.4
[2020-09-27 12:26] VITALS: BP 161/96; PULSE 116; TEMP 98.7
[2020-09-28 11:43] VITALS: BP 178/93; PULSE 108; TEMP 98
[2020-09-29 11:35] VITALS: BP 147/92; PULSE 104; TEMP 97.8
[2020-10-18 11:57] VITALS: BP 152/84; PULSE 109; TEMP 98.4
[2020-10-19 11:44] VITALS: BP 151/92; PULSE 104; TEMP 98.6
[2020-10-20 11:43] VITALS: BP 178/98; PULSE 109; TEMP 98.3
[2020-10-21 08:55] VITALS: BP 160/89; PULSE 103; TEMP 97.6
[~2020-10-22] VITALS: Ht 167.6 cm; Wt 52.2 kg
[2020-10-22 08:58] VITALS: BP 163/91; PULSE 93; TEMP 97.9
== END 2020-12-17 | disposition still patient (30) ==
LOC: EUO
DX: Z45.2 Encounter for adjustment and management of vascular access device (principal); G12.21 Amyotrophic lateral sclerosis
CPT/HCPCS: J1301; J1644; J7040